=== PATIENT | female | born 1985 | race Caucasian/White ===

== ENCOUNTER 2024-12-04 05:57 | Day surgery (SDC) | payer OTHER ==
[2024-12-04] MEDS ORDERED: PITRESSIN 20 UNITS ONE (06:11)
[2024-12-04 06:17] VITALS: RESP 18
[2024-12-04 06:25] LABS: Hematocrit 42.7 % (34.1-44.9); Hemoglobin 14.2 g/dL (11.2-15.7); Mean Corpuscular Hemoglobin 27.5 pg (25.6-32.2); Mean Corpuscular Hgb Concent. 33.3 g/dL (32.2-35.5); Platelet Count 374 x10^3/uL (182-369); Red Blood Count 5.16 x10^6/uL (3.93-5.22); White Blood Count 10.6 x10^3/uL (3.98-10.04)
[2024-12-04 06:29] LABS: HCG URINE TEST NEGATIVE (NEGATIVE)
[2024-12-04 06:52] LABS: Calcium 9.4 mg/dL (8.4-10.2); Carbon Dioxide 22.0 mmol/L (22-30); Creatinine 1 0.92 mg/dL (0.52-1.04); EST GLOMERULAR FILTRATION RATE 80.7 ML/MIN; Glucose 108.0 mg/dL (74-106); Potassium 3.3 mmol/L (3.5-5.1); SGOT/AST 44.0 U/L (14-36); SGPT/ALT 52.0 U/L (0-35); Total Protein 7.5 g/dL (6.3-8.2)
[2024-12-04] MEDS: Lactated Ringers 1,000 ML IV SCH (07:14)
[2024-12-04] MEDS: KEFZOL 1 GM** 3 G in Sodium Chloride 0.9% 50 ML 50 ML IV ONE (07:14)
[2024-12-04] MEDS ORDERED: Versed 2 MG/2 ML Injection ONE (07:46)
[2024-12-04] MEDS ORDERED: SUBLIMAZE 100 MCG/2 ML ONE (07:46)
[2024-12-04] MEDS ORDERED: BRIDION 200MG/2ML IV ONE ×2 (07:47→08:41)
[2024-12-04] MEDS ORDERED: Xylocaine-Mpf 2% 5 Ml Vial ONE (07:47)
[2024-12-04] MEDS ORDERED: propofoL IV ONE (07:47)
[2024-12-04] MEDS ORDERED: Zofran 4 MG/2 ML VIAL ONE (07:47)
[2024-12-04] MEDS ORDERED: ROCURONIUM BROMIDE IV ONE (07:47)
[2024-12-04] MEDS ORDERED: DEXMEDETOMIDINE 80 MCG/20ML-NS IV ONE (07:47)
[2024-12-04] MEDS ORDERED: Pre-Attached Lta Kit TP ONE (08:03)
[2024-12-04] MEDS ORDERED: ROBINUL ONE (08:28)
[2024-12-04] MEDS ORDERED: TORAdol 30 mg Injection ONE (08:33)
[2024-12-04] MEDS ORDERED: ATROPINE SULFATE 1MG ONE (08:46)
[2024-12-04 09:35] VITALS: TEMP 97
[2024-12-04 09:47] VITALS: BP 129/80; PULSE 69; O2SAT 97
--- NOTE | 2024-12-06 11:58 | OP ---
SURGERY DATE/TIME: 12/04/2024 [id number] PREOPERATIVE DIAGNOSIS: Stress incontinence. POSTOPERATIVE DIAGNOSIS: Stress incontinence. PROCEDURE: Placement of Altis mid urethral bladder sling and cystoscopy. SURGEON: Barak Pineda DO HULL GRINDER: Chaya Arana ANESTHESIA: General. ESTIMATED BLOOD LOSS: Minimal. COMPLICATIONS: None. INDICATIONS: The risks, benefits, indications, and alternatives of the procedure were reviewed with the patient prior to the procedure. The patient understood the risks of infection, bleeding, bowel injury, bladder injury, ureteral injury, pelvic infection, vaginal erosion, dyspareunia, mesh erosion that can be associated with the surgery, and desires to have the surgery as a possible means to alleviate her current medical condition. DESCRIPTION OF PROCEDURE AND FINDINGS: From this point, the patient was taken to the operating room, given general sedation and placed in dorsal lithotomy position, prepped and draped in the usual sterile fashion. A weighted speculum was then placed in the patient's vagina, and approximately 1 cm distal to the urethra, approximately 25 mL of diluted vasopressin was injected in the posterior vagina as well as either side of the periurethral region. A vertical vaginal incision of approximately 1.5 cm was made in the midline and it was 1.5 cm below the urethral meatus. The periurethral space was dissected bilaterally using sharp and blunt dissection to create a tract toward the obturator internus fascia on either side. The Altis Sling System was then prepared. The static anchor was then introduced first on the surgeon's right side using the curved helical introducer and deployed to the obturator internus fascia. The dynamic anchor was then deployed on the left side in a similar fashion. Both anchors were deployed with tactile and audible confirmation. The sling was adjusted to lie flat beneath the mid urethra without tension. At this point after placement, the cystoscope was then inserted into the urethra to evaluate the bladder for any injury. Both ureteral orifices were visualized with normal efflux. No evidence of bladder or urethral injury was seen. From this point, the cystoscope was removed, and the vaginal incision was closed with continuous stitch of 3-0 Vicryl suture. The Young catheter was then inserted. The patient was then taken out of the dorsal lithotomy position, was taken out of anesthesia, was then taken to the recovery room in stable condition. All instruments and laps were accounted for x2.
== END 2024-12-04 10:03 | disposition home or self-care (01) ==
LOC: SDC 05:57
PROVIDERS: ATTEND Obstetrics & Gynecology
DX: N39.3 Stress incontinence (female) (male) (principal)
CPT/HCPCS: 57288; 80053; 81025; 85027; 93005; C1771